=== PATIENT | female | born 1995 | race Caucasian/White ===

== ENCOUNTER 2019-04-12 20:01 | Inpatient (IN) ==
[2019-04-12] MEDS ORDERED: DIPHTHERIA/TETANUS/PERTUSSIS 0.5 ML SYR/VIAL IM ONE (21:51)
[2019-04-12 22:08] LABS: Hemoglobin 15.9 g/dL (12.0-16.0); Immature Granulocytes # (auto) 0.01 K/uL (0.00-0.02); Immature Granulocytes % (auto) 0.1 %; Lymphocytes # (auto) 1.55 K/uL (1.2-3.4); Lymphocytes % (auto) 21.7 %; Mean Corpuscular Hemoglobin 29.4 pg (25-34); Mean Corpuscular Hgb Conc 31.8 g/dL (32-36); Mean Corpuscular Volume 92.6 fL (80-100); Mean Platelet Volume 11.6 fL (7.4-10.4); Monocytes # (auto) 0.54 K/uL (0.11-0.59); Monocytes % (auto) 7.6 %; Neutrophils # (auto) 5.03 K/uL (1.4-6.5); Neutrophils % (auto) 70.6 %; Platelet Count 244 K/uL (130-400); RDW Coefficient of Variation 14.2 % (11.5-14.5); RDW Standard Deviation 47.8 fL (36.4-46.3); White Blood Count 7.13 K/uL (4.8-10.8)
[2019-04-12 22:23] LABS: Appearance Urine Cloudy (Clear); Bacteria Urine Automated 1+ (Negative); Bilirubin Urine Negative (Negative); Blood Urine Negative (Negative); Color Urine Dark Yellow; Epithelial Cell Urine Auto >30 /lpf (0-5); Glucose Urine UA Negative (Negative); Ketones Urine Trace (Negative); Leukocyte Esterase Urine 1+ (Negative); Nitrite Urine Negative (Negative); Protein Urine Negative (Negative); Urobilinogen Urine Negative (Negative)
[2019-04-12 22:28] LABS: Acetaminophen < 2 ug/ml (10-30); Salicylate < 1.7 mg/dl (2.8-20)
[2019-04-12 22:29] LABS: BUN Creatinine Ratio 14.4 (10-20); Calcium 9.5 mg/dl (8.5-10.1); Creatinine Clr Calc Pharmacy 137.7 ml/min; Est GFR (African American) 90.1; Est GFR (Non-African American) 77.7; Potassium 3.9 mmol/L (3.5-5.1)
--- NOTE | 2019-04-12 22:38 | Emergency Department Note ---
Entered by Angelia Ramirez acting as a scribe for History of Present Illness General Chief complaint: Mental Health Evaluation Stated complaint: MENTAL HEALTH EVAL Time Seen by Provider: 04/12/19 20:32 Source: patient History of Present Illness Provider complaint: Worsening Auditory Hallucinations Onset (ago): day(s) 1 Location: upper extremity Relieved By: + none Exacerbated By: + other (Stress) Associated symptoms: + denies other symptoms (Homicidal Ideation) and + other (Suicidal Ideation and AVH) The patient is a 24 year old female who presents to the Emergency Room with complaints of worsening auditory hallucinations. The patient additionally has cuts on her left upper extremity that is exacerbated by stress but not relieved by anything specific. The patient reports experiencing SI and AVH but denies any HI. The patient states she hears voices that tell her to hurt herself and sometimes to kill herself. The patient notes that she is stressed out about her poor relationship with her mother. Additionally, the patient mentioned that she has not been able to keep her anger under control but has not been institutionalized for almost 2-3 years. Home Medications Home Medications Medication Instructions Recorded Confirmed Type C1 esterase inhibitor 3,000 unit 9,000 units SUBCUT 2XWK ea 01/16/19 04/13/19 History subcutaneous solution C1 esterase inhibitor 500 unit (10 IV UD ea 01/16/19 01/16/19 History mL) intravenous kit aripiprazole 2 mg PO DAILY 04/12/19 04/12/19 History buspirone 5 mg PO BID 04/12/19 04/12/19 History clozapine 100 mg PO BID 04/12/19 04/12/19 History cyanocobalamin (vitamin B-12) 1,000 mcg PO DAILY 04/12/19 04/12/19 History icatibant 30 mg SUBCUT UD 04/12/19 04/13/19 History levothyroxine 75 mcg PO DAILY 04/12/19 04/12/19 History olopatadine 1 drp OPHTHALMIC (EYE) DAILY PRN 04/12/19 04/12/19 History sertraline 50 mg PO DAILY 04/12/19 04/12/19 History Allergies Allergy/AdvReac Type Severity Reaction Status Date / Time cranberry Allergy Unknown Verified 04/12/19 20:58 grapefruit Allergy Unknown Verified 04/12/19 20:57 Past Med/Surg History Medical History Intellectual disability (Chronic) Schizoaffective disorder, bipolar type (Chronic) Posttraumatic stress disorder (Chronic) Multiple nevi (Chronic) Morbid obesity (Chronic) Metabolic syndrome (Chronic) Hypothyroidism (Chronic) Hypersomnolence (Chronic) Hereditary angioedema (Chronic) Generalized anxiety disorder (Chronic) Surgical History History of dental surgery Status post hysteroscopic ablation of endometrium S/P tubal ligation S/P tonsillectomy Social History Preferred Language: [place] Gate Clerk Required: No Beliefs That Will Affect Care: None marital status: Single Current Living Situation: Other Current Living Situation Comment: Life Sharing partner Feels Safe at Home: Yes Smoking Status: Former smoker Review of Systems See HPI for pertinent positives & negatives. and A total of 10 systems reviewed and were otherwise negative Physical Exam Vital Signs Vital Signs - 24 hr 04/12/19 22:00 Pulse Rate [Finger] 97 H Pulse Rhythm [Finger] Regular Pulse Strength [Finger] Normal Respiratory Rate 18 Respiratory Effort / Characteristics Non-Labored Spontaneous Respiratory Depth Normal Respiratory Pattern Regular Blood Pressure [Right Arm] 147/95 H Blood Pressure Mean [Right Arm] 112 Blood Pressure Position [Right Arm] Sitting Pulse Oximetry 98 Oxygen Delivery Method Room Air GENERAL: alert, well appearing, well nourished, no distress, non-toxic. Flat affect. EYE EXAM: normal conjunctiva, PERRL and EOM's grossly intact OROPHARYNX: no exudate, no erythema, lips, buccal mucosa, and tongue normal and mucous membranes are moist NECK: supple, no nuchal rigidity, no adenopathy, non-tender LUNGS: Clear to auscultation. Normal chest wall mechanics HEART: no murmurs, S1 normal and S2 normal ABDOMEN: abdomen soft, non-tender, normo-active bowel sounds, no masses, no rebound or guarding. BACK: Back is symmetrical on inspection and there is no deformity, no midline tenderness, no CVA tenderness. SKIN: no rashes and no bruising UPPER EXTREMITIES: Left ventral forearm with multiple superficial lacerations. Normal distal pulses bilaterally. LOWER EXTREMITIES: No pitting edema. NEURO EXAM: Normal sensorium, cranial nerves II-XII grossly intact, normal speech, no gross weakness of arms, no gross weakness of legs. Course 2037: Past medical records reviewed. The patient was evaluated in room A05. A complete history and physical exam was performed. 2219: Patient seen and evaluated by Shalini, psychiatric case repairer. Patient will be referred upstairs to 3 S. [id number]: [id number] signed by myself. Patient admitted to [facility]. Administered Medications Aripiprazole (Abilify) 1 ea PO DAILY LUIS Stop: 05/13/19 08:59 Last Admin: 04/13/19 08:43 Dose: 1 ea Documented by: [id number] Buspirone HCl (Buspar) 5 mg PO BID LUIS Stop: 05/13/19 08:59 Last Admin: 04/13/19 21:14 Dose: 5 mg Documented by: [id number] Admin: 04/13/19 08:43 Dose: 5 mg Documented by: [id number] Buspirone HCl (Buspar) 7.5 mg PO BID PRN PRN Reason: Anxiety Stop: 05/13/19 20:59 Last Admin: 04/13/19 17:10 Dose: 7.5 mg Documented by: [id number] Clozapine (Clozapine) 100 mg PO BID LUIS Stop: 05/13/19 08:59 Last Admin: 04/13/19 21:15 Dose: 100 mg Documented by: [id number] Admin: 04/13/19 08:43 Dose: 100 mg Documented by: [id number] Cyanocobalamin (Vitamin B-12) 100 mcg PO QAM LUIS Stop: 05/13/19 08:59 Last Admin: 04/13/19 08:44 Dose: 100 mcg Documented by: [id number] Hydroxyzine HCl (Vistaril) 50 mg PO HSZ PRN PRN Reason: Insomnia Stop: 05/13/19 00:57 Last Admin: 04/13/19 01:02 Dose: 50 mg Documented by: [id number] Hydroxyzine HCl (Vistaril) 25 mg PO Q4H PRN PRN Reason: Anxiety Stop: 05/13/19 00:57 Last Admin: 04/13/19 17:10 Dose: 25 mg Documented by: [id number] Admin: 04/13/19 10:01 Dose: 25 mg Documented by: [id number] Levothyroxine Sodium (Synthroid) 75 mcg PO DAILYBB LUIS Stop: 05/13/19 07:59 Last Admin: 04/13/19 08:43 Dose: 75 mcg Documented by: [id number] Non-Formulary Medication (Non-Formulary Patient's Own Med) 1 ea OP DAILY PRN PRN Reason: ALLERGY EYES Stop: 05/13/19 01:59 Last Admin: 04/13/19 11:28 Dose: 1 dose Documented by: [id number] Discontinued Medications Diphtheria/Pertussis/Tetanus Vacc (Adacel) 0.5 ml IM .ONCE ONE Stop: 04/12/19 21:52 Last Admin: 04/12/19 22:05 Dose: 0.5 ml Documented by: [id number] Sertraline HCl (Zoloft) 50 mg PO DAILY LUIS Stop: 05/13/19 08:59 Last Admin: 04/13/19 08:43 Dose: 50 mg Documented by: [id number] Medical Decision Making Differential Diagnosis Differential diagnosis: Etiologies such as psychiatric disorder, infection, hypoglycemia, electrolyte abnormalities, cardiac sources, intracerebral event, toxicological process, neurologic disorder, as well as others were entertained. Medical Records Attestation: I reviewed the patient's medical records. Home Medications Current Medication List: was personally reviewed by me Laboratory Data Attestation: I reviewed the patient's lab results. Result diagrams: 04/12/19 21:51 04/12/19 21:51 Lab Results 04/12/19 04/12/19 04/12/19 Range/Units 21:51 21:51 21:51 WBC 7.13 (4.8-10.8) K/uL RBC 5.40 (4.2-5.4) M/uL Hgb 15.9 (12.0-16.0) g/dL Hct 50.0 H (37-47) % MCV 92.6 (80-100) fL MCH 29.4 (25-34) pg MCHC 31.8 L (32-36) g/dL RDW Std Deviation 47.8 H (36.4-46.3) fL RDW Coeff of Drea 14.2 (11.5-14.5) % Plt Count 244 (130-400) K/uL MPV 11.6 H (7.4-10.4) fL Immature Gran % (Auto) 0.1 % Neut % (Auto) 70.6 % Lymph % (Auto) 21.7 % Lyon % (Auto) 7.6 % Eos % (Auto) 0.0 % Baso % (Auto) 0.0 % Immature Gran # (Auto) 0.01 (0.00-0.02) K/uL Neut # (Auto) 5.03 (1.4-6.5) K/uL Lymph # (Auto) 1.55 (1.2-3.4) K/uL Lyon # (Auto) 0.54 (0.11-0.59) K/uL Eos # (Auto) 0.00 (0-0.5) K/uL Baso # (Auto) 0.00 (0-0.2) K/uL Sodium 140 (136-145) mmol/L Potassium 3.9 (3.5-5.1) mmol/L Chloride 105 (98-107) mmol/L Carbon Dioxide 28 (21-32) mmol/L Anion Gap 7.0 (3-11) BUN 14 (7-18) mg/dl Creatinine 1.00 (0.6-1.2) mg/dl Est Cr Clr Drug Dosing 137.7 ml/min Est GFR ( Amer) 90.1 Est GFR (Non-Af Amer) 77.7 BUN/Creatinine Ratio 14.4 (10-20) Glucose 107 H (70-99) mg/dl Calcium 9.5 (8.5-10.1) mg/dl Total Bilirubin 0.3 (0.2-1) mg/dl AST 12 L (15-37) U/L ALT 27 (12-78) U/L Alkaline Phosphatase 88 (45-117) U/L Total Protein 7.6 (6.4-8.2) gm/dl Albumin 4.0 (3.4-5.0) gm/dl Globulin 3.6 (2.5-4.0) gm/dl Albumin/Globulin Ratio 1.1 (0.9-2) TSH 2.980 (0.300-4.500) uIu/ml HCG, Qual (Negative) Urine Color Urine Appearance (Clear) Urine pH (4.5-7.5) Ur Specific [place] (1.000-1.030) Urine Protein (Negative) Urine Glucose (UA) (Negative) Urine Ketones (Negative) Urine Blood (Negative) Urine Nitrite (Negative) Urine Bilirubin (Negative) Urine Urobilinogen (Negative) Ur Leukocyte Esterase (Negative) Urine WBC (Auto) (0-5) /hpf Urine RBC (Auto) (0-4) /hpf U Hyaline Cast (Auto) (0-5) /lpf U Epithel Cells (Auto) (0-5) /lpf Urine Bacteria (Auto) (Negative) Salicylates < 1.7 L (2.8-20) mg/dl Urine Opiates Screen (Neg) Ur Methadone, Qual (Neg) Acetaminophen < 2 L (10-30) ug/ml Urine Barbiturates (Neg) Ur Phencyclidine (PCP) (Neg) U Amphetamin/Meth Scrn (Neg) MDMA (Ecstasy) Screen (Neg) U Benzodiazepines Scrn (Neg) Ur Cocaine Metabolite (Neg) U Marijuana (THC) Screen (Neg) Ethyl Alcohol mg/dL (0-3) mg/dl 04/12/19 04/12/19 04/12/19 Range/Units 21:51 21:56 22:07 WBC (4.8-10.8) K/uL RBC (4.2-5.4) M/uL Hgb (12.0-16.0) g/dL Hct (37-47) % MCV (80-100) fL MCH (25-34) pg MCHC (32-36) g/dL RDW Std Deviation (36.4-46.3) fL RDW Coeff of Drea (11.5-14.5) % Plt Count (130-400) K/uL MPV (7.4-10.4) fL Immature Gran % (Auto) % Neut % (Auto) % Lymph % (Auto) % Lyon % (Auto) % Eos % (Auto) % Baso % (Auto) % Immature Gran # (Auto) (0.00-0.02) K/uL Neut # (Auto) (1.4-6.5) K/uL Lymph # (Auto) (1.2-3.4) K/uL Lyon # (Auto) (0.11-0.59) K/uL Eos # (Auto) (0-0.5) K/uL Baso # (Auto) (0-0.2) K/uL Sodium (136-145) mmol/L Potassium (3.5-5.1) mmol/L Chloride (98-107) mmol/L Carbon Dioxide (21-32) mmol/L Anion Gap (3-11) BUN (7-18) mg/dl Creatinine (0.6-1.2) mg/dl Est Cr Clr Drug Dosing ml/min Est GFR ( Amer) Est GFR (Non-Af Amer) BUN/Creatinine Ratio (10-20) Glucose (70-99) mg/dl Calcium (8.5-10.1) mg/dl Total Bilirubin (0.2-1) mg/dl AST (15-37) U/L ALT (12-78) U/L Alkaline Phosphatase (45-117) U/L Total Protein (6.4-8.2) gm/dl Albumin (3.4-5.0) gm/dl Globulin (2.5-4.0) gm/dl Albumin/Globulin Ratio (0.9-2) TSH (0.300-4.500) uIu/ml HCG, Qual Negative (Negative) Urine Color Urine Appearance (Clear) Urine pH (4.5-7.5) Ur Specific [place] (1.000-1.030) Urine Protein (Negative) Urine Glucose (UA) (Negative) Urine Ketones (Negative) Urine Blood (Negative) Urine Nitrite (Negative) Urine Bilirubin (Negative) Urine Urobilinogen (Negative) Ur Leukocyte Esterase (Negative) Urine WBC (Auto) (0-5) /hpf Urine RBC (Auto) (0-4) /hpf U Hyaline Cast (Auto) (0-5) /lpf U Epithel Cells (Auto) (0-5) /lpf Urine Bacteria (Auto) (Negative) Salicylates (2.8-20) mg/dl Urine Opiates Screen Neg (Neg) Ur Methadone, Qual Neg (Neg) Acetaminophen (10-30) ug/ml Urine Barbiturates Neg (Neg) Ur Phencyclidine (PCP) Neg (Neg) U Amphetamin/Meth Scrn Neg (Neg) MDMA (Ecstasy) Screen Neg (Neg) U Benzodiazepines Scrn Neg (Neg) Ur Cocaine Metabolite Neg (Neg) U Marijuana (THC) Screen Neg (Neg) Ethyl Alcohol mg/dL < 3.0 (0-3) mg/dl 04/12/19 Range/Units 22:07 WBC (4.8-10.8) K/uL RBC (4.2-5.4) M/uL Hgb (12.0-16.0) g/dL Hct (37-47) % MCV (80-100) fL MCH (25-34) pg MCHC (32-36) g/dL RDW Std Deviation (36.4-46.3) fL RDW Coeff of Drea (11.5-14.5) % Plt Count (130-400) K/uL MPV (7.4-10.4) fL Immature Gran % (Auto) % Neut % (Auto) % Lymph % (Auto) % Lyon % (Auto) % Eos % (Auto) % Baso % (Auto) % Immature Gran # (Auto) (0.00-0.02) K/uL Neut # (Auto) (1.4-6.5) K/uL Lymph # (Auto) (1.2-3.4) K/uL Lyon # (Auto) (0.11-0.59) K/uL Eos # (Auto) (0-0.5) K/uL Baso # (Auto) (0-0.2) K/uL Sodium (136-145) mmol/L Potassium (3.5-5.1) mmol/L Chloride (98-107) mmol/L Carbon Dioxide (21-32) mmol/L Anion Gap (3-11) BUN (7-18) mg/dl Creatinine (0.6-1.2) mg/dl Est Cr Clr Drug Dosing ml/min Est GFR ( Amer) Est GFR (Non-Af Amer) BUN/Creatinine Ratio (10-20) Glucose (70-99) mg/dl Calcium (8.5-10.1) mg/dl Total Bilirubin (0.2-1) mg/dl AST (15-37) U/L ALT (12-78) U/L Alkaline Phosphatase (45-117) U/L Total Protein (6.4-8.2) gm/dl Albumin (3.4-5.0) gm/dl Globulin (2.5-4.0) gm/dl Albumin/Globulin Ratio (0.9-2) TSH (0.300-4.500) uIu/ml HCG, Qual (Negative) Urine Color Dark Yellow Urine Appearance Cloudy A (Clear) Urine pH 7.0 (4.5-7.5) Ur Specific [place] 1.030 (1.000-1.030) Urine Protein Negative (Negative) Urine Glucose (UA) Negative (Negative) Urine Ketones Trace H (Negative) Urine Blood Negative (Negative) Urine Nitrite Negative (Negative) Urine Bilirubin Negative (Negative) Urine Urobilinogen Negative (Negative) Ur Leukocyte Esterase 1+ H (Negative) Urine WBC (Auto) 10-30 H (0-5) /hpf Urine RBC (Auto) 5-10 H (0-4) /hpf U Hyaline Cast (Auto) 5-10 H (0-5) /lpf U Epithel Cells (Auto) >30 H (0-5) /lpf Urine Bacteria (Auto) 1+ H (Negative) Salicylates (2.8-20) mg/dl Urine Opiates Screen (Neg) Ur Methadone, Qual (Neg) Acetaminophen (10-30) ug/ml Urine Barbiturates (Neg) Ur Phencyclidine (PCP) (Neg) U Amphetamin/Meth Scrn (Neg) MDMA (Ecstasy) Screen (Neg) U Benzodiazepines Scrn (Neg) Ur Cocaine Metabolite (Neg) U Marijuana (THC) Screen (Neg) Ethyl Alcohol mg/dL (0-3) mg/dl Blood Pressure Blood Pressure Findings: Elevated blood pressure Blood Pressure Disposition: Referred to patients primary care provider [facility] Narrative Patient well-appearing here despite complaints. Patient continues to say she does not feel safe at home. Patient does have a prior history of cutting, and has cut again this evening. I do not feel any of them require stitches. Patient's tetanus was updated as a precaution. Patient was in agreement with inpatient admission. Patient's other labs reassuring, UA suboptimal, however no overt findings of UTI and no symptoms. Patient hemodynamically stable while here. Patient does admit to SI, although denies any plan. Patient does have a long-standing history of auditory hallucinations, some of which do tell her to hurt herself, she denies they have ever told her to hurt anyone else. Impression & Plan Depression, Schizoaffective disorder, bipolar type, Intentional self-harm, Suicidal ideation, Auditory hallucination Discharge Plan Visit Data *Final* Discharge Date/Time: 04/13/19 00:25 Chief Complaint: Mental Health Evaluation Stated Complaint: MENTAL HEALTH EVAL ED Provider: Purvi Lawson Discharge Problem: Depression, Schizoaffective disorder, bipolar type, Intentional self-harm, Suic idal ideation, Auditory hallucination Patient Disposition: Transfer Inpatient Rehab Fac Condition: Good Discharge Instructions Interventions: ED Discharge Assessment Last Done: 04/13/19 00:25 The scribe's documentation has been prepared under my direction and personally reviewed by me in its entirety. I confirm that the note above accurately reflects all work, treatment, procedures, and medical decision making performed by me.
[2019-04-12 22:39] LABS: Albumin Globulin Ratio 1.1 (0.9-2); Bilirubin,Total 0.3 mg/dl (0.2-1); Globulin 3.6 gm/dl (2.5-4.0); Thyroid Stimulating Hormone 2.98 uIu/ml (0.300-4.500); Total Protein 7.6 gm/dl (6.4-8.2)
[2019-04-12 22:43] LABS: Amphetamines+Metham, Urine Neg (Neg); Barbiturates, Urine Neg (Neg); Benzodiazepine, Urine Neg (Neg); Cocaine, Urine Neg (Neg); MDMA (Ecstacy), Urine Neg (Neg); Methadone, Urine Neg (Neg); Opiate, Urine Neg (Neg); Phencyclidine, Urine Neg (Neg)
[2019-04-12 23:47] LABS: Pregnancy Test, Serum Negative (Negative)
[2019-04-13 00:26] VITALS: O2SAT 94
[2019-04-13] MEDS ORDERED: SODIUM CHLORIDE 0.65% NA SOLN 45 ML (OCEAN) PRN (00:58)
[2019-04-13] MEDS ORDERED: BISMUTH SUBSALICYLATE PER ML OMNICELL CHARGE PO PRN (00:58)
[2019-04-13] MEDS ORDERED: MAGNESIUM HYDROXIDE SUSP 30 ML UDC PO PRN (00:58)
[2019-04-13] MEDS ORDERED: ALUMINUM/MAGNESIUM SUSP 30 ML UDC PO PRN (00:58)
[2019-04-13] MEDS ORDERED: FIRAZYR SQ PRN (02:00)
[2019-04-13] MEDS ORDERED: NON-FORMULARY PATIENT'S OWN MED OP PRN (02:00)
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
[2019-04-13] MEDS: ARIPiprazole PO SCH (08:43)
[2019-04-13] MEDS: cloZAPine 100 MG TAB PO SCH ×2 (08:43→21:15)
[2019-04-13] MEDS: LEVOTHYROXINE SODIUM 75 MCG TABLET PO SCH (08:43)
[2019-04-13] MEDS: CYANOCOBALAMIN (VITAMIN B-12) 100 MCG TABLET PO SCH (08:44)
[2019-04-13] MEDS ORDERED: ARIPIprazole 1 MG/ML ORAL SOLN 150 ML BTL PO SCH (09:00)
[2019-04-13] MEDS ORDERED: BUSPIRONE HCL 7.5 MG TAB PO SCH (09:00)
[2019-04-13] MEDS ORDERED: SERTRALINE HCL 50 MG TABLET PO SCH (09:00)
[2019-04-13] MEDS: BUSPIRONE HCL 7.5 MG TAB PO PRN (17:10)
[2019-04-14 07:45] LABS: Estimated Average Glucose 114 mg/dl; Hemoglobin A1C 5.6 % (4.5-5.6)
[2019-04-14 08:12] LABS: Chol HDL Ratio 4; Cholesterol 187 mg/dl (0-200); HDL Cholesterol 50 mg/dl; LDL Cholesterol Calculated 112 mg/dl; Triglycerides 124 mg/dl (0-150); VLDL Cholesterol 25 mg/dl
[2019-04-14] MEDS: ARIPiprazole PO SCH (08:59)
[2019-04-14] MEDS: LEVOTHYROXINE SODIUM 75 MCG TABLET PO SCH (08:59)
[2019-04-14] MEDS: cloZAPine 100 MG TAB PO SCH ×2 (09:00→21:03)
[2019-04-14] MEDS: CYANOCOBALAMIN (VITAMIN B-12) 100 MCG TABLET PO SCH (09:01)
[2019-04-14] MEDS: SERTRALINE HCL 50 MG TABLET PO SCH (09:01)
[2019-04-14] MEDS: ACETAMINOPHEN 325 MG TAB PO PRN ×2 (10:04→19:37)
--- NOTE | 2019-04-14 13:31 | Psychiatric Progress Note ---
Date of Service April 14, 2019 Impression / Recommendations Impression 24-year-old single female who lives with a staff member and supportive living in [place], has a history of schizoaffective disorder bipolar type and intellectual disability, and is hospitalized with self-injurious behavior by cutting her left forearm in the context of anger at having to move away from her parents home due to substance abuse issues in the family. She reports exacerbation of depression and anxiety over the past several months, and although her chart indicates a history of schizoaffective disorder, she does not endorse any true psychotic symptoms. She describes her "hallucinations" as her own thoughts, and states they turn to self injury as a way to cope when she is upset or angry. She appears to have limited distress tolerance and healthy coping skills, and is willing to work on these here. Home user support analyst supervisor from [facility] was involved in a meeting to discuss discharge and safety planning. She would also like to be set up with an in person psychiatrist, as she had a session via tele-psychiatry and did not like it. Inpatient treatment is medically necessary due to the severity of her symptoms, ongoing thoughts of self injury and suicide, and risk for self- harm if discharged at this time. (1) Intentional self-harm: 04/13 -evaluated superficial lacerations to left forearm; multiple scratches that appear to be healing, no swelling, erythema, active bleeding. Keep area clean and dry, use of bacitracin as needed. -Patient reports ongoing urges to engage in self injury, and agrees to go to staff if she feels unable to keep herself safe. Explore and identify healthy coping strategies; work on discharge safety plan. 04/14 - Pt verbalized desire to harm herself to staff last evening, presenting them with a pen she had intended to use - Pt admits to ongoing thoughts to harm herself, but has refrained from acting - stating "I gave up my weapon" (2) Schizoaffective disorder, bipolar type: 04/13 -obtain outpatient records to clarify diagnosis and past treatments. We will also need to clarify if she is being cross titrated from 1 antipsychotic to another, or if aripiprazole is being used for augmentation with clozapine. -Continue home medications including buspirone 5 mg twice daily, clozapine 100 mg twice daily, and aripiprazole 2 mg daily. Increase sertraline to 75 mg daily to target mood and anxiety symptoms. -CBC with differential reviewed for monitoring on clozapine; ANC 5.03. -Order fasting lipid profile and hemoglobin A1c for monitoring on an atypical antipsychotic for tomorrow morning.` -Encourage patient to attend to participate in groups and therapy. -Family meeting. Coordinate care with her outpatient clinicians. 04/14 - Continue as above; buspirone titrated to 10mg BID scheduled, with continued availability of 7.5mg prn dosing - Family meeting with support from [facility] was held today - Continue to encourage participation in group and recreational therapy (3) Generalized anxiety disorder: Continue home dose of buspirone 5 mg twice daily and increase sertraline as above. Offer hydroxyzine as needed for severe anxiety. Work on behavioral techniques for managing anxiety and de-escalating. 04/14 - buspirone titrated to 10mg BID, to begin this evening - can continue titration as needed/tolerated - Continue to have prn dosing of buspirone 7.5mg prn anxiety (4) Intellectual disability: Involved director of casework services from [employer]. (5) Posttraumatic stress disorder: Patient denies active symptoms currently. (6) Morbid obesity: Encouraged nutritious diet and physical activity, to assist with overall health, mood, anxiety, and weight loss. (7) Hypothyroidism: Continue home dose of levothyroxine. TSH within normal limits on admissio n. Risk Factors Assessment Male: No : Yes Do You Have Access To A Gun?: No Health Problems: Yes Mental Health Diagnoses: Yes Substance Use Disorders: No Previous Attempt: Yes Previous Psychiatric Hospitalization: Yes Hopelessness: No Smoker: No Protective Factors Assessment : No Responsible for Young Children: No Employed: No Stable Relationships: Yes Supportive Family: No Good Rapport with Provider: No Interval History Identifying Information TYLER HOLLOWAY is a 24-year-old F who currently lives in [place] with a female "director of community life," has a history of schizoaffective disorder, bipolar type and ID, and was admitted on 04/13/19 00:05 on a 201 voluntary commitment for auditory hallucinations telling her to harm herself and self injury by cutting. Chief Complaint "Not good. I had a rough meeting." Review of Systems Notes Constitutional: denied Cardiovascular: denied Respiratory: denied Gastrointestinal: denied Neurological: denied Psychiatric: denies symptoms other than stated above Total of at least 10 systems reviewed, pertinent positives as above and in HPI. Sleep Information Total Hours of Sleep: 6.5 Sleep Comments: pt on q-15 minute checks Meal Information Percent Meal Consumed - Breakfast: 0 Percent Meal Consumed - Lunch: 75 Percent Meal Consumed - Dinner: 75 Nutrition Comment: pt. does not typically eat breakfast Subjective Subjective Patient was seen & assessed and interval progress reviewed with nursing and social work. Staff reports the patient has a meeting with her support strength and conditioning coach from [facility] this afternoon. Patient did not verbalize to staff urges to harm herself with a pen last evening. She is able to communicate these urges and re linquished the pen. Patient was seen today to assess progress since admission. She states that she is "not good." Patient reports having a "rough meeting" with her support strength and conditioning coach. Patient feels the meeting was rough due to "the things we talked about", most specifically discussing patient's biological family. Patient states that the topic of her family has been difficult, as she does not feel that they are a support to her. Patient states this has been difficult for her, as many patients had verbalized a tremendous amount of support from their family members and patient feels left out. When asked what the patient was able to learn from the meeting, she states "that we need help communicating." Patient states that she does have difficulty opening up to her support, which due to the fact that they have only known each other for a limited time. The patient states "I have only going on the lady for 4 months!" Patient does admit that her support strength and conditioning coach shared that "I scared the crap out of her", and for this the patient verbalizes remorse. The patient reports understanding that self- injurious behavior is not a positive reaction to stress; however, states she was not sure how to handle the situation no one was available to reach out to. The patient does admit to ongoing feelings of depression and anxiety, stating "this is not me, I am usually happy and bubbly." Patient continues to deny truly suicidal ideation, stating she has no intent to end her life, but admits to ongoing urges to harm herself. Patient states she has not been tempted to act on these urges since "I gave up my weapon." The patient admits that she gave staff the pen that she had considered using to harm herself last evening. Patient is agreeable to medication adjustments to target ongoing anxiety. Patient denies other needs or concerns at this time. Physical Exam Psychiatric Orientation: alert, oriented x 3 and cooperative (but timid) Apperance: appropriately dressed (Dressed casually, but wearing a nightgown for duration of the day), appropriately groomed and appeared stated age Eye Contact: good eye contact Motor Behavior: steady gait and station and no abnormal motor movements Speech: + abnormal rate/rhythm/volume of speech (soft volume, whispering at times - nonspontaneous) Affect: + flat affect Mood: + anxious mood ("I need help, anything to help my anxiety") Thought Process: goal directed thought process and + concrete thought process Thought Content: reality based without delusions Suicidal Thoughts: denies suicidal thoughts (but admits to continued thoughts to injure herself, no intent to end life) and denies suicidal intent Homicidal Thoughts: denies homicidal thoughts Hallucinations: + auditory hallucinations (voices telling her to harm herself, most recently by using a pen) Cognition: attention grossly intact and language grossly intact Estimated Intelligence: + below average estimated intelligence Insight: + limited insight Judgement: + fair judgement Vital Signs (Past 24 Hours) Last Vital Signs Temp 36.4 C L 04/14/19 06:38 Pulse 103 H 04/14/19 06:39 Resp 20 04/14/19 06:38 BP 130/73 04/14/19 06:39 Pulse Ox 94 04/13/19 00:25 Results & Data Laboratory Results Laboratory Results - last 24 hr 04/14/19 04/14/19 07:16 07:16 Estimat Average Glucose 114 Hemoglobin A1c 5.6 Triglycerides 124 Cholesterol 187 LDL Cholesterol, Calc 112 VLDL Cholesterol, Calc 25 HDL Cholesterol 50 Cholesterol/HDL Ratio 4 Current Inpatient Medications Current Inpatient Medications: Current Inpatient Medications Acetaminophen (Tylenol) 650 mg PO Q4H PRN PRN Reason: Headache or Minor Fever Stop: 05/13/19 00:57 Last Admin: 04/14/19 10:04 Dose: 650 mg Documented by: Al Hydrox/Mg Hydrox/Simethicone (Maalox) 30 ml PO Q4H PRN PRN Reason: GI Upset Stop: 05/13/19 00:57 Aripiprazole (Abilify) 1 ea PO DAILY LUIS Stop: 05/13/19 08:59 Last Admin: 04/14/19 08:59 Dose: 1 ea Documented by: Bismuth Subsalicylate (Kaopectate) 15 ml PO PRN PRN PRN Reason: Loose Stool Stop: 05/13/19 00:57 Buspirone HCl (Buspar) 5 mg PO BID LUIS Stop: 05/13/19 08:59 Last Admin: 04/14/19 09:00 Dose: 5 mg Documented by: Buspirone HCl (Buspar) 7.5 mg PO BID PRN PRN Reason: Anxiety Stop: 05/13/19 20:59 Last Admin: 04/13/19 17:10 Dose: 7.5 mg Documented by: Clozapine (Clozapine) 100 mg PO BID [facility] Stop: 05/13/19 08:59 Last Admin: 04/14/19 09:00 Dose: 100 mg Documented by: Cyanocobalamin (Vitamin B-12) 100 mcg PO QAM LUIS Stop: 05/13/19 08:59 Last Admin: 04/14/19 09:01 Dose: 100 mcg Documented by: Hydroxyzine HCl (Vistaril) 50 mg PO HSZ PRN PRN Reason: Insomnia Stop: 05/13/19 00:57 Last Admin: 04/13/19 01:02 Dose: 50 mg Documented by: Hydroxyzine HCl (Vistaril) 25 mg PO Q4H PRN PRN Reason: Anxiety Stop: 05/13/19 00:57 Last Admin: 04/14/19 09:03 Dose: 25 mg Documented by: Levothyroxine Sodium (Synthroid) 75 mcg PO DAILYBB [facility] Stop: 05/13/19 07:59 Last Admin: 04/14/19 08:59 Dose: 75 mcg Documented by: Magnesium Hydroxide (Milk Of Magnesia) 30 ml PO DAILY PRN PRN Reason: Constipation Stop: 05/13/19 00:57 Firazyr~Non- Formulary Patient's Own Med 1 ea SQ UD PRN PRN Reason: ANGIOEDEMA Stop: 05/13/19 01:59 Non-Formulary Medication (Non-Formulary Patient's Own Med) 1 ea OP DAILY PRN PRN Reason: ALLERGY EYES Stop: 05/13/19 01:59 Last Admin: 04/13/19 11:28 Dose: 1 dose Documented by: Sertraline HCl (Zoloft) 75 mg PO DAILY [facility]IS Stop: 05/14/19 08:59 Last Admin: 04/14/19 09:01 Dose: 75 mg Documented by: Sodium Chloride ([place] Nasal) 1 - 2 sprays NA PRN PRN PRN Reason: Nasal Dryness/Congestion Stop: 05/13/19 00:57 Mental Health & Subst Abuse Tx Therapist Name of Therapist: none Marine Steam Fitter Name of Marine Steam Fitter: ROGER Cramer Post Discharge Appointments Other #1: Name of Aftercare Appointment: [facility]
[2019-04-14] MEDS: BUSPIRONE HCL 7.5 MG TAB PO PRN (16:59)
[2019-04-15] MEDS: ARIPiprazole PO SCH (08:18)
[2019-04-15] MEDS: LEVOTHYROXINE SODIUM 75 MCG TABLET PO SCH (08:18)
[2019-04-15] MEDS: SERTRALINE HCL 50 MG TABLET PO SCH (08:19)
[2019-04-15] MEDS: cloZAPine 100 MG TAB PO SCH ×2 (08:19→21:23)
[2019-04-15] MEDS: CYANOCOBALAMIN (VITAMIN B-12) 100 MCG TABLET PO SCH (08:19)
--- NOTE | 2019-04-15 10:25 | Psychiatric Progress Note ---
Date of Service April 15, 2019 Impression / Recommendations Impression 24-year-old single female who lives with a staff member and supportive living in [place], has a history of schizoaffective disorder bipolar type and intellectual disability, and is hospitalized with self-injurious behavior by cutting her left forearm in the context of anger at having to move away from her parents home due to substance abuse issues in the family. She reports exacerbation of depression and anxiety over the past several months, and although her chart indicates a history of schizoaffective disorder, she does not endorse any true psychotic symptoms. She describes her "hallucinations" as her own thoughts, and states they turn to self injury as a way to cope when she is upset or angry. She appears to have limited distress tolerance and healthy coping skills, and is willing to work on these here. Home client application support engineer from [facility] was involved in a meeting to discuss discharge and safety planning. She would also like to be set up with an in person psychiatrist, as she had a session via tele-psychiatry and did not like it. While these arrangements are recommended, it is not likely that her care can be transitioned during this acute hospitalization without disrupting other highly beneficial services patient receives currently. Inpatient treatment is medically necessary due to the severity of her symptoms, ongoing thoughts of self injury and suicide, and risk for self-harm if discharg ed at this time. (1) Intentional self-harm: 04/13 -evaluated superficial lacerations to left forearm; multiple scratches that appear to be healing, no swelling, erythema, active bleeding. Keep area clean and dry, use of bacitracin as needed. -Patient reports ongoing urges to engage in self injury, and agrees to go to staff if she feels unable to keep herself safe. Explore and identify healthy coping strategies; work on discharge safety plan. 04/14 - Pt verbalized desire to harm herself to staff last evening, presenting them with a pen she had intended to use - Pt admits to ongoing thoughts to harm herself, but has refrained from acting - stating "I gave up my weapon" 04/15 - Denies overt SI, admits to chronic thoughts to injure herself - actively developing healthy coping strategies with assistance from staff (2) Schizoaffective disorder, bipolar type: 04/13 -obtain outpatient records to clarify diagnosis and past treatments. We will also need to clarify if she is being cross titrated from 1 antipsychotic to another, or if aripiprazole is being used for augmentation with clozapine. -Continue home medications including buspirone 5 mg twice daily, clozapine 100 mg twice daily, and aripiprazole 2 mg daily. Increase sertraline to 75 mg daily to target mood and anxiety symptoms. -CBC with differential reviewed for monitoring on clozapine; ANC 5.03. -Order fasting lipid profile and hemoglobin A1c for monitoring on an atypical antipsychotic for tomorrow morning.` -Encourage patient to attend to participate in groups and therapy. -Family meeting. Coordinate care with her outpatient clinicians. 04/14 - Continue as above; buspirone titrated to 10mg BID scheduled, with continued availability of 7.5mg prn dosing - Family meeting with support from [facility] was held today - Continue to encourage participation in group and recreational therapy 04/15 - Continue current medication regimen - Coordinate discharge planning with patient home support through [facility] (3) Generalized anxiety disorder: Continue home dose of buspirone 5 mg twice daily and increase sertraline as above. Offer hydroxyzine as needed for severe anxiety. Work on behavioral techniques for managing anxiety and de-escalating. 04/14 - buspirone titrated to 10mg BID, to begin this evening - can continue titration as needed/tolerated - Continue to have prn dosing of buspirone 7.5mg prn anxiety (4) Intellectual disability: Involved protective services case worker from [employer]. (5) Posttraumatic stress disorder: Patient denies active symptoms currently. (6) Morbid obesity: Encouraged nutritious diet and physical activity, to assist with overall health, mood, anxiety, and weight loss. (7) Hypothyroidism: Continue home dose of levothyroxine. TSH within normal limits on admission. Risk Factors Assessment Male: No : Yes Do You Have Access To A Gun?: No Health Problems: Yes Mental Health Diagnoses: Yes Substance Use Disorders: No Previous Attempt: Yes Previous Psychiatric Hospitalization: Yes Hopelessness: No Smoker: No Protective Factors Assessment : No Responsible for Young Children: No Employed: No Stable Relationships: Yes Supportive Family: No Good Rapport with Provider: No Interval History Identifying Information TYLER HOLLOWAY is a 24-year-old F who currently lives in [place] with a female "wildlife ecologist," has a history of schizoaffective disorder, bipolar type and ID, and was admitted on 04/13/19 00:05 on a 201 voluntary commitment for auditory hallucinations telling her to harm herself and self injury by cutting. Chief Complaint "Anxious." Review of Systems Notes Constitutional: reports episodic dizziness, increased drowsiness today Cardiovascular: denied Respiratory: denied Gastrointestinal: denied Neurological: denied Psychiatric: denies symptoms other than stated above Total of at least 10 systems reviewed, pertinent positives as above and in HPI. Sleep Information Total Hours of Sleep: 7 Sleep Comments: pt on q-15 minute checks Meal Information Percent Meal Consumed - Breakfast: 0 Percent Meal Consumed - Lunch: 75 Percent Meal Consumed - Dinner: 100 Nutrition Comment: pt. does not typically eat breakfast Subjective Subjective Patient was seen & assessed and interval progress reviewed with treatment team. Staff reports the patient had a somewhat difficult meeting with her ID support dance coach, whom she lives with. The meeting was focused on expectations of behavior within the home. Patient continues to verbalize anxiety to staff, but reportedly appears comfortable and at ease on the unit. Patient was seen today to assess progress since admission. She states that she is "anxious" today. When asked about specific thoughts or physical symptoms that make her say this, the patient states "my heart races, sweaty, and my hand is shaking more than usual." Patient held out her hand to this provider, and no tremor was observed. Patient states that she is having increased thoughts to hurt herself today, stating "they are bad enough today that they are making me have thoughts that I do not want to be around anymore." When attempting to discuss the severity of these thoughts, the patient does describe them as "mild." She denies any specific plans or considerations to harm herself here on the unit. Patient does share with this provider that she continues to have thoughts to injure herself, but denies that these are suicidal in nature. Patient does report several coping strategies she has been utilizing on the unit to distract herself from these thoughts. One of the strategies, according to the patient, was to write on her arm. On the same arm that the patient injured prior to admission, this provider observes that she has written the words "be kind to myself" and drawn what appears to be a wound with stitches. When asked how this has benefited the patient, she states "I look out of it and it reminds me not to be stupid and hurt myself." Patient states that she has been experiencing some increased drowsiness during the day, and verbalizes episodes of dizziness. Patient was encouraged to continue to monitor the symptoms. We reviewed potential side effects with titration of buspirone, and patient agreed to update staff with any changes in her physical condition. We had discussed steps to improve her condition over the next 1-2 days, with anticipation for discharge rather soon. Patient verbalized feeling comfortable with this idea. Physical Exam Psychiatric Orientation: alert, oriented x 3 and cooperative (Shy, but pleasant) Apperance: appropriately dressed (Casually, wearing T-shirt and sweatpants), appropriately groomed and appeared stated age Eye Contact: good eye contact Motor Behavior: steady gait and station and no abnormal motor movements Speech: normal rate/rhythm/volume of speech (Soft volume, nonspontaneous) Affect: + blunted affect; no anxious affect and + mood not congruent with affect Mood: + anxious mood ("I am anxious") Thought Process: goal directed thought process and + concrete thought process Thought Content: reality based without delusions; no hopelessness Suicidal Thoughts: denies suicidal thoughts and denies suicidal intent Homicidal Thoughts: denies homicidal thoughts Hallucinations: no auditory hallucinations (Describes "thoughts telling me to hurt myself", unclear if true AH) Cognition: attention grossly intact and language grossly intact Estimated Intelligence: + below average estimated intelligence Insight: + limited insight (Likely limited by intellectual disability) Judgement: + limited judgement (Likely limited by intellectual disability) Vital Signs (Past 24 Hours) Last Vital Signs Temp 36.3 C L 04/15/19 06:46 Pulse 84 04/15/19 06:48 Resp 20 04/15/19 06:46 BP 120/75 04/15/19 06:48 Pulse Ox 94 04/13/19 00:25 Results & Data Current Inpatient Medications Current Inpatient Medications: Current Inpatient Medications Acetaminophen (Tylenol) 650 mg PO Q4H PRN PRN Reason: Headache or Minor Fever Stop: 05/13/19 00:57 Last Admin: 04/14/19 19:37 Dose: 650 mg Documented by: Al Hydrox/Mg Hydrox/Simethicone (Maalox) 30 ml PO Q4H PRN PRN Reason: GI Upset Stop: 05/13/19 00:57 Aripiprazole (Abilify) 1 ea PO DAILY [facility] Stop: 05/13/19 08:59 Last Admin: 04/15/19 08:18 Dose: 1 ea Documented by: Bismuth Subsalicylate (Kaopectate) 15 ml PO PRN PRN PRN Reason: Loose Stool Stop: 05/13/19 00:57 Buspirone HCl (Buspar) 7.5 mg PO BID PRN PRN Reason: Anxiety Stop: 05/13/19 20:59 Last Admin: 04/14/19 16:59 Dose: 7.5 mg Documented by: Buspirone HCl (Buspar) 10 mg PO BID [facility]IS Stop: 05/14/19 20:59 Last Admin: 04/15/19 08:19 Dose: 10 mg Documented by: Clozapine (Clozapine) 100 mg PO BID [facility] Stop: 05/13/19 08:59 Last Admin: 04/15/19 08:19 Dose: 100 mg Documented by: Cyanocobalamin (Vitamin B-12) 100 mcg PO QAM [facility]IS Stop: 05/13/19 08:59 Last Admin: 04/15/19 08:19 Dose: 100 mcg Documented by: Hydroxyzine HCl (Vistaril) 50 mg PO HSZ PRN PRN Reason: Insomnia Stop: 05/13/19 00:57 Last Admin: 04/13/19 01:02 Dose: 50 mg Documented by: Hydroxyzine HCl (Vistaril) 25 mg PO Q4H PRN PRN Reason: Anxiety Stop: 05/13/19 00:57 Last Admin: 04/14/19 09:03 Dose: 25 mg Documented by: Levothyroxine Sodium (Synthroid) 75 mcg PO DAILYBB [facility] Stop: 05/13/19 07:59 Last Admin: 04/15/19 08:18 Dose: 75 mcg Documented by: Magnesium Hydroxide (Milk Of Magnesia) 30 ml PO DAILY PRN PRN Reason: Constipation Stop: 05/13/19 00:57 Firazyr~Non- Formulary Patient's Own Med 1 ea SQ UD PRN PRN Reason: ANGIOEDEMA Stop: 05/13/19 01:59 Non-Formulary Medication (Non-Formulary Patient's Own Med) 1 ea OP DAILY PRN PRN Reason: ALLERGY EYES Stop: 05/13/19 01:59 Last Admin: 04/13/19 11:28 Dose: 1 dose Documented by: Sertraline HCl (Zoloft) 75 mg PO DAILY [facility] Stop: 05/14/19 08:59 Last Admin: 04/15/19 08:19 Dose: 75 mg Documented by: Sodium Chloride ([place] Nasal) 1 - 2 sprays NA PRN PRN PRN Reason: Nasal Dryness/Congestion Stop: 05/13/19 00:57 Mental Health & Subst Abuse Tx Psychiatrist Name of Psychiatrist: Hollie Meneses Psychiatrist's Psychiatric Appointment Comment: [id number] [place], [place] [address] Therapist Name of Therapist: none Flash Designer Name of Flash Designer: TRAY Abel Phone Number for Flash Designer: [phone] Case Management Appointment Comment: [address] [facility], [place] [address] Post Discharge Appointments Other #1: Name of [facility] [place] #2: Name of Aftercare Appointment: To change Medical Assistance from [facility] to [facility] Phone Number of Aftercare Appointment: Aftercare Appointment Comment: [address] [place] [address] Contact Information Discharge Discharge Address: [address] [place] [address], [place] [id number]
[2019-04-15] MEDS: BUSPIRONE HCL 7.5 MG TAB PO PRN (19:20)
[2019-04-16 06:42] VITALS: TEMP 97.7
[2019-04-16] MEDS: ARIPiprazole PO SCH (08:59)
[2019-04-16] MEDS: LEVOTHYROXINE SODIUM 75 MCG TABLET PO SCH (08:59)
[2019-04-16] MEDS: cloZAPine 100 MG TAB PO SCH (09:00)
[2019-04-16] MEDS: SERTRALINE HCL 50 MG TABLET PO SCH (09:00)
[2019-04-16] MEDS: CYANOCOBALAMIN (VITAMIN B-12) 100 MCG TABLET PO SCH (09:00)
--- NOTE | 2019-04-16 09:11 | Discharge Summary ---
Date of Service April 16, 2019 History of Present Illness Patient presented to the ER yesterday, 04/12/2019, with self-inflicted lacerations to her left upper extremity. She reported command auditory hallucinations to harm and kill herself and suicidal thoughts. These were exacerbated by stress due to a poor relationship with her mother. Laboratory data were notable for glucose 107, normal TSH, UA with trace ketones, 1+ leukocyte esterase, 10-12 WBCs, 5-10 RBCs,> 30 epithelial cells, and 1+ bacteria; UDS negative. She was admitted voluntarily. On my assessment she reports her day yesterday "started off great, then I heard a voice in my head telling me to cut myself, and I acted on it, and cut myself a lot." She says she "had to see the blood to make me happy, I know that it's right, but that's what happened." She initially denies triggers, but when asked about trying to contact her mother, admits that she was upset about being able to reach her. She was living with her parents in [place] until 4-6 months ago when she moved to a "life sharing home" in [place] to "get away from there, the alcohol got to us, my dad has anger problems." She talks to them on the phone but does not get to see them. She lives with a life share provider, "I'm disabled, I can't live alone." She reports depressed mood for the past 3 months, triggered by moving out of parents' home and missing them. She enjoys arts and crafts, attends a day program, and works at her day program. Sleep has been good, appetite is good, but focus is impaired and she's had suicidal thoughts 1-3 times a month. She reports AH daily that she describes as "racing thoughts, my own thoughts, but it sounds real." She denies hearing a voice and describes it as "more in my head." The thoughts are often to "hurt myself," and come and go, worsening when upset or angry. She has not cut in two years, and is "upset that I did that." She reports anxiety with heart racing, sweating, excessive worry about "anything and everything under the sun." She denies panic attacks, manic and PTSD symptoms. She states she feels overwhelmed, is still having urges to hurt herself, and agrees to go to staff if feels she is going to act on them. She used to smoke cigarettes and drink alcohol to cope, but hasn't in 4-6 months since she moved. She also goes outside for walks as a way to cope. Physical Exam Psychiatric Orientation: alert, oriented x 3 and cooperative Apperance: appropriately dressed (still in pajamas), + disheveled (awoken from sleep for discharge interview) and appeared stated age Eye Contact: good eye contact Motor Behavior: steady gait and station and no abnormal motor movements Speech: normal rate/rhythm/volume of speech Affect: + blunted affect (appearing fatigued, but not overtly depressed) Mood: no depressed mood ("I just woke up, but I think my mood is ok") and no anxious mood Thought Process: goal directed thought process, clear/coherent thought process and + concrete thought process Thought Content: reality based without delusions; no hopelessness and no worthlessness Suicidal Thoughts: denies suicidal thoughts, denies suicidal plan and denies suicidal intent Homicidal Thoughts: denies homicidal thoughts Hallucinations: no auditory hallucinations and no visual hallucinations Cognition: attention grossly intact and language grossly intact Estimated Intelligence: + below average estimated intelligence Insight: + limited insight (limited by intellectual disability, fair insight as it pertains to tx) Judgement: + fair judgement Vital Signs (Past 24 Hours) Last Vital Signs Temp 36.5 C 04/16/19 06:41 Pulse 102 H 04/16/19 06:42 Resp 20 04/16/19 06:41 BP 124/78 04/16/19 06:42 Pulse Ox 94 04/13/19 00:25 Principal Diagnosis - Schizoaffective disorder, bipolar type - Generalized anxiety disorder - Posttraumatic stress disorder - Intellectual disability Psychiatric Data 24-year-old female admitted voluntarily for inpatient psychiatric treatment after presenting to the ED on 04/12/2019 with self-inflicted lacerations to her left arm. Patient verbalized auditory hallucinations commanding her to harm and kill herself. Patient had cut herself "to see the blood to make me happy." Patient is aware that these behaviors are not an appropriate way to manage difficult emotions stated "that is what happened." It was reported that the patient had moved into a "life sharing home" in the past 4-6 months, in order to be removed from difficult and potentially harmful situations at home. Patient reported that there is significant alcohol use at her parents house, and that "my dad has anger problems." Patient is now residing in [place], with a female support who shares her home with the patient with assistance from an organization called [employer]. Patient does have a documented intellectual disability, and has several mental health support services in her county as well. Patient attends a day program 5 days a week and also has multiple caseworkers. She also has tele-psychiatry through [employer]. Patient reportedly carries diagnoses of intellectual disability; schizoaffective disorder, bipolar type; generalized anxiety disorder; and posttraumatic stress disorder, with denial of active symptoms currently. Some adjustments were made to the patient's psychiatric medication regimen in order to target reports of anxiety. Her dose of sertraline was titrated from 50 mg to 75 mg daily. Her dose of buspirone was also titrated to 10 mg twice daily, and she was discharged with ability to take an extra 10 mg tablet during the day if needed. Otherwise, patient was continued on clozapine 100 mg twice daily, and aripiprazole 2 mg daily. Steps were taken to convert patient's clozapine registration from her previous pharmacy to the [facility] in [place] prior to discharge. Collateral information was gathered from patient's "life support assistant womens volleyball coach" to coordinate aftercare and discharge plans. Multiple attempts were made to coordinate care with patient's outpatient case management social worker. At the time of discharge, aftercare appointments were confirmed, to allow for timely follow-up after discharge. Over the course of the patient's hospitalization, she had verbalized steady improvement in mood and demonstrated ability to contract for safety. On two occasions, the patient verbalized to staff thoughts to harm herself without suicidal intent. Both times the patient provided a pen she had considered using for the self-harm to staff to demonstrate ability to resist these urges. Patient actively participated in group programming and was interactive with peers. Her life support assistant womens volleyball coach did present for a family meeting which was reportedly productive. Collateral from outpatient sources outlines the patient's history of chronic episodes of suicidality with self-harm behavior. By the time of discharge consideration, patient was denying both suicidal ideation and thoughts to physically harm herself. Patient's life support assistant womens volleyball coach was involved in discharge planning, and verbalized readiness to take the patient home. Discharge plan was discussed with the patient, who verbalized agreement with discharge. Based on review of patient's case and their current presentation, risk of harm to self or others is no longer perceived to be acute. Management of symptoms on an outpatient basis seems the most appropriate and least restrictive setting. Pt seems appropriate for discharge with recommendation for consistent follow-up with outpatient psychiatric prescriber, case management social worker, and day program staff. Pt verbalized understanding of discharge plan reviewed and is agreeable with plan to be discharged home today. Day of Discharge Assessment Patient's case was reviewed and discussed with nursing and social work. Staff reports the patient continues to deny suicidal ideation. She received a visit from her home support person last evening, which went well by this individual's report, but patient did not agree. Pt was able to provide staff with a pen, after reporting she had thoughts to use it to harm herself - demonstrating effective use of her safety plan. Pt was seen today to assess readiness for discharge, as patient's support person felt the patient was appropriate to return home. Pt states that she is "tired" this morning, as she had still been sleeping prior to our conversation. The patient states that she received a visit last evening from her home support individual, which patient states went "horribly." The support, however, told staff that the meeting was productive and she feels the patient would be able to return home with her. Pt reports that the upsetting part of the meeting was finding out that she would not be able to go to family gatherings. Pt does admit, however, that it made her feel "pretty good" when her support aid told her the patient could spend the holidays with the aid and her family. Pt states that her "hurt feelings" resolved rather quickly after she was engaged in a card game with peers. Patient states that at this time, she is not having thoughts to harm herself or thoughts to end her life. Aftercare plan was reviewed with the patient, who verbalized understanding of discharge recommendations. She states that she feels comfortable returning home if her home support aid is agreeable to the idea. Patient states she is planning to either attend day programming tomorrow, or go to work with her aid. Patient denies acute needs or concerns at this time. Patient did complete a safety plan prior to discharge, which she is able to verbalize with this provider during conversation. The written form was reviewed by this provider prior to discharge. ROS: Constitutional: reports current fatigue Cardiovascular: denied Respiratory: denied Gastrointestinal: denied Neurological: denied Psychiatric: denies symptoms other than stated above Total of at least 10 systems reviewed, pertinent positives as above and in HPI. Transition of Care Transition Of Care Record: was reviewed with the patient Advance Directives Advance Directives Information Provided: Yes Advance Directives: No Mental Health Advance Directive: No Advance Directives on File: No Living Will: No Power of Sales Effectiveness Manager: No Advance Directives Reason:: Declines as Mental Health Visit. Risk Factors Assessment Presenting risk factors reviewed on discharge. Precipitating stressors mitigated by: admission for inpatient psychiatric observation and treatment, appropriate adjustments to medications to target symptoms, attendance of therapeutic treatment groups, development of healthy and effective coping strategies, involvement of outpatient supports, completion of a safety plan, treatment of medical conditions and education on diagnoses. Pt has demonstrated improvement in condition with regard to improvement in mood, demonstration of ability to contract for safety, resolution of SI, coordination of aftercare, and involvement of outpatient supports in discharge/safety planning. At this time, patient is requesting discharge and is no longer considered to be at acute risk of harm to herself or others. Pt will be discharged with recommendation for ongoing outpatient psychiatric treatment. Male: No : Yes Do You Have Access To A Gun?: No Health Problems: Yes Mental Health Diagnoses: Yes Substance Use Disorders: No Previous Attempt: Yes Previous Psychiatric Hospitalization: Yes Hopelessness: No Smoker: No Protective Factors Assessment : No Responsible for Young Children: No Employed: No Stable Relationships: Yes Supportive Family: No Good Rapport with Provider: No Tobacco Cessation at Discharge Tobacco Cessation Medication Prescribed at Discharge: Not Applicable/Non-Smoker Antipsychotic Medications Discharge medication list includes recommendation to continue home dosage of 2 antipsychotic medications. Pt is being maintained on clozapine 100mg BID with augmentation from aripiprazole 2mg due to multiple likely failed antipsychotic trials, and what was likely ineffective management of symptoms with clozapine alone. Total Time Total Time Spent: Greater Than 30 Minutes Total Time Includes: Examination of the patient, Discharge Planning, Medication Reconciliation and Communication with other providers Discharge Data Lab Results 04/12/19 04/12/19 04/12/19 21:51 21:51 21:51 WBC 7.13 RBC 5.40 Hgb 15.9 Hct 50.0 H MCV 92.6 MCH 29.4 MCHC 31.8 L RDW Std Deviation 47.8 H RDW Coeff of Drea 14.2 Plt Count 244 MPV 11.6 H Immature Gran % (Auto) 0.1 Neut % (Auto) 70.6 Lymph % (Auto) 21.7 Heard % (Auto) 7.6 Eos % (Auto) 0.0 Baso % (Auto) 0.0 Immature Gran # (Auto) 0.01 Neut # (Auto) 5.03 Lymph # (Auto) 1.55 Heard # (Auto) 0.54 Eos # (Auto) 0.00 Baso # (Auto) 0.00 Sodium 140 Potassium 3.9 Chloride 105 Carbon Dioxide 28 Anion Gap 7.0 BUN 14 Creatinine 1.00 Est Cr Clr Drug Dosing 137.7 Est GFR ( Amer) 90.1 Est GFR (Non-Af Amer) 77.7 BUN/Creatinine Ratio 14.4 Glucose 107 H Estimat Average Glucose Hemoglobin A1c Calcium 9.5 Total Bilirubin 0.3 AST 12 L ALT 27 Alkaline Phosphatase 88 Total Protein 7.6 Albumin 4.0 Globulin 3.6 Albumin/Globulin Ratio 1.1 Triglycerides Cholesterol LDL Cholesterol, Calc VLDL Cholesterol, Calc HDL Cholesterol Cholesterol/HDL Ratio TSH 2.980 HCG, Qual Urine Color Urine Appearance Urine pH Ur Specific [place] Urine Protein Urine Glucose (UA) Urine Ketones Urine Blood Urine Nitrite Urine Bilirubin Urine Urobilinogen Ur Leukocyte Esterase Urine WBC (Auto) Urine RBC (Auto) U Hyaline Cast (Auto) U Epithel Cells (Auto) Urine Bacteria (Auto) Salicylates < 1.7 L Urine Opiates Screen Ur Methadone, Qual Acetaminophen < 2 L Urine Barbiturates Ur Phencyclidine (PCP) U Amphetamin/Meth Scrn MDMA (Ecstasy) Screen U Benzodiazepines Scrn Ur Cocaine Metabolite U Marijuana (THC) Screen Ethyl Alcohol mg/dL 04/12/19 04/12/19 04/12/19 21:51 21:56 22:07 WBC RBC Hgb Hct MCV MCH MCHC RDW Std Deviation RDW Coeff of Drea Plt Count MPV Immature Gran % (Auto) Neut % (Auto) Lymph % (Auto) Heard % (Auto) Eos % (Auto) Baso % (Auto) Immature Gran # (Auto) Neut # (Auto) Lymph # (Auto) Heard # (Auto) Eos # (Auto) Baso # (Auto) Sodium Potassium Chloride Carbon Dioxide Anion Gap BUN Creatinine Est Cr Clr Drug Dosing Est GFR ( Amer) Est GFR (Non-Af Amer) BUN/Creatinine Ratio Glucose Estimat Average Glucose Hemoglobin A1c Calcium Total Bilirubin AST ALT Alkaline Phosphatase Total Protein Albumin Globulin Albumin/Globulin Ratio Triglycerides Cholesterol LDL Cholesterol, Calc VLDL Cholesterol, Calc HDL Cholesterol Cholesterol/HDL Ratio TSH HCG, Qual Negative Urine Color Urine Appearance Urine pH Ur Specific [place] Urine Protein Urine Glucose (UA) Urine Ketones Urine Blood Urine Nitrite Urine Bilirubin Urine Urobilinogen Ur Leukocyte Esterase Urine WBC (Auto) Urine RBC (Auto) U Hyaline Cast (Auto) U Epithel Cells (Auto) Urine Bacteria (Auto) Salicylates Urine Opiates Screen Neg Ur Methadone, Qual Neg Acetaminophen Urine Barbiturates Neg Ur Phencyclidine (PCP) Neg U Amphetamin/Meth Scrn Neg MDMA (Ecstasy) Screen Neg U Benzodiazepines Scrn Neg Ur Cocaine Metabolite Neg U Marijuana (THC) Screen Neg Ethyl Alcohol mg/dL < 3.0 04/12/19 04/14/19 04/14/19 22:07 07:16 07:16 WBC RBC Hgb Hct MCV MCH MCHC RDW Std Deviation RDW Coeff of Rdea Plt Count MPV Immature Gran % (Auto) Neut % (Auto) Lymph % (Auto) Heard % (Auto) Eos % (Auto) Baso % (Auto) Immature Gran # (Auto) Neut # (Auto) Lymph # (Auto) Heard # (Auto) Eos # (Auto) Baso # (Auto) Sodium Potassium Chloride Carbon Dioxide Anion Gap BUN Creatinine Est Cr Clr Drug Dosing Est GFR ( Amer) Est GFR (Non-Af Amer) BUN/Creatinine Ratio Glucose Estimat Average Glucose 114 Hemoglobin A1c 5.6 Calcium Total Bilirubin AST ALT Alkaline Phosphatase Total Protein Albumin Globulin Albumin/Globulin Ratio Triglycerides 124 Cholesterol 187 LDL Cholesterol, Calc 112 VLDL Cholesterol, Calc 25 HDL Cholesterol 50 Cholesterol/HDL Ratio 4 TSH HCG, Qual Urine Color Dark Yellow Urine Appearance Cloudy A Urine pH 7.0 Ur Specific [place] 1.030 Urine Protein Negative Urine Glucose (UA) Negative Urine Ketones Trace H Urine Blood Negative Urine Nitrite Negative Urine Bilirubin Negative Urine Urobilinogen Negative Ur Leukocyte Esterase 1+ H Urine WBC (Auto) 10-30 H Urine RBC (Auto) 5-10 H U Hyaline Cast (Auto) 5-10 H U Epithel Cells (Auto) >30 H Urine Bacteria (Auto) 1+ H Salicylates Urine Opiates Screen Ur Methadone, Qual Acetaminophen Urine Barbiturates Ur Phencyclidine (PCP) U Amphetamin/Meth Scrn MDMA (Ecstasy) Screen U Benzodiazepines Scrn Ur Cocaine Metabolite U Marijuana (THC) Screen Ethyl Alcohol mg/dL Hospital Course (1) Intentional self-harm: 04/13 -evaluated superficial lacerations to left forearm; multiple scratches that appear to be healing, no swelling, erythema, active bleeding. Keep area clean and dry, use of bacitracin as needed. -Patient reports ongoing urges to engage in self injury, and agrees to go to staff if she feels unable to keep herself safe. Explore and identify healthy coping strategies; work on discharge safety plan. 04/14 - Pt verbalized desire to harm herself to staff last evening, presenting them with a pen she had intended to use - Pt admits to ongoing thoughts to harm herself, but has refrained from acting - stating "I gave up my weapon" 04/15 - Denies overt SI, admits to chronic thoughts to injure herself - actively developing healthy coping strategies with assistance from staff (2) Schizoaffective disorder, bipolar type: 04/13 -obtain outpatient records to clarify diagnosis and past treatments. We will also need to clarify if she is being cross titrated from 1 antipsychotic to another, or if aripiprazole is being used for augmentation with clozapine. -Continue home medications including buspirone 5 mg twice daily, clozapine 100 mg twice daily, and aripiprazole 2 mg daily. Increase sertraline to 75 mg daily to target mood and anxiety symptoms. -CBC with differential reviewed for monitoring on clozapine; ANC 5.03. -Order fasting lipid profile and hemoglobin A1c for monitoring on an atypical antipsychotic for tomorrow morning.` -Encourage patient to attend to participate in groups and therapy. -Family meeting. Coordinate care with her outpatient clinicians. 04/14 - Continue as above; buspirone titrated to 10mg BID scheduled, with continued availability of 7.5mg prn dosing - Family meeting with support from [facility] was held today - Continue to encourage participation in group and recreational therapy 04/15 - Continue current medication regimen - Coordinate discharge planning with patient home support through [facility] (3) Generalized anxiety disorder: Continue home dose of buspirone 5 mg twice daily and increase sertraline as above. Offer hydroxyzine as needed for severe anxiety. Work on behavioral techniques for managing anxiety and de-escalating. 04/14 - buspirone titrated to 10mg BID, to begin this evening - can continue titration as needed/tolerated - Continue to have prn dosing of buspirone 7.5mg prn anxiety (4) Intellectual disability: Involved case management social worker from [employer]. (5) Posttraumatic stress disorder: Patient denies active symptoms currently. (6) Morbid obesity: Encouraged nutritious diet and physical activity, to assist with overall health, mood, anxiety, and weight loss. (7) Hypothyroidism: Continue home dose of levothyroxine. TSH within normal limits on admission. Mental Health & Subst Abuse Tx Psychiatrist Name of Psychiatrist: Hollie Meneses Psychiatrist's Time of Appointment with Psychiatrist: Sarah is rescheduling Psychiatric Appointment Comment: [id number] [place], [place] [address] Therapist Name of Therapist: none Professional Healthcare Representative Name of Professional Healthcare Representative: TRAY Bela Abel Phone Number for Professional Healthcare Representative: [phone] Case Management Appointment Comment: [address] [place] [address] Post Discharge Appointments Smoking Cessation Counseling Tobacco Cessation Medication Prescribed at Discharge: Not Applicable/Non-Smoker Other #1: Name of Aftercare Appointment: Case Management Services in [facility] Phone Number of Aftercare Appointment: [phone] Aftercare Appointment Comment: [address], [address], [place], [place] #2: Name of Aftercare Appointment: To change Medical Assistance from [facility] to [facility] Phone Number of Aftercare Appointment: Aftercare Appointment Comment: [address], [place] [address] Contact Information Discharge Discharge Address: [address] [place] [address] [address] , [place] [address] Discharge Plan Discharge Items Patient Disposition: Home - Self-Care Reason For Visit: SCHIZO AFFECTIVE, DEPRESSION Discharge Diagnosis: Schizoaffective disorder; Anxiety Condition on Discharge: Fair Activity: Resume your previous activity Non-emergency contact: Primary Care Provider, Psychiatrist, Therapist and Salvage Worker Call non-emergency contact if: you have any medication questions and your symptoms worsen Follow-up/Referrals: Olga Larios MD [Primary Care Provider] - Diet: Regular Addtl Attending Provider Instructions: SPECIAL CARE INSTRUCTIONS: 1. Follow through with your scheduled aftercare appointments. If unable to keep an appointment, please call to reschedule. 2. Take your medication only as prescribed. Medication should not be changed or stopped without the approval of your doctor. In the event of worsening symptoms or concerns about side effects, contact your doctor immediately. 3. Utilize new healthy coping skills, anger management skills, and stress management skills learned during your hospitalization. Journal feelings and process them with a support person. Identify stressors or situations that may result in relapse, deterioration or inappropriate behaviors and develop a plan to deal with those issues. 4. If your coping skills are ineffective and you are in crisis, contact your outpatient providers for direction. If unable to reach your providers, please call the CAN HELP LINE AT or go to the closest Emergency Room. 5. Avoid alcohol and un-prescribed drugs. 6. You have been provided with the Mental Health Advance Directives Pamphlet for your review. AFTERCARE APPOINTMENTS: * Please call your insurance company prior to your scheduled appointment to confirm your aftercare providers are covered. Take your insurance information to your appointments. WHO TO CALL AND WHEN: Medical Emergencies: For questions or emergencies related to your hospital stay, please contact the Inpatient Behavioral Health Unit at [phone]. A assessment clinician is on-call 07/01 for the Behavioral Health Unit for emergencies At any time you feel your situation is an emergency, you may also call 911 i mmediately. Your Discharge Instructions noted above were prepared by provider Rose Ferrera PA-C. Pending Studies at Discharge: No Stand-Alone Forms: [facility], Smoking Cessation Medications and DC Order Prescriptions: New buspirone 10 mg tablet 10 mg PO TID 30 Days Qty: 90 RF: 0 sertraline 50 mg tablet 75 mg PO DAILY 30 Days Qty: 45 RF: 0 Continued C1 esterase inhibitor 3,000 unit recon soln 9,000 units subcut 2XWK RF: 0 aripiprazole 2 mg Tablet 2 mg PO DAILY RF: 0 olopatadine 0.2 % Drops 1 drp OPHTHALMIC (EYE) DAILY PRN (Reason: Dry Eyes) RF: 0 clozapine 100 mg Tablet 100 mg PO BID RF: 0 cyanocobalamin (vitamin B-12) 1,000 mcg Tablet 1,000 mcg PO DAILY RF: 0 icatibant 30 mg/3 mL Syringe 30 mg SUBCUT UD RF: 0 Changed levothyroxine 75 mcg Tablet 75 mcg PO DAILYBB Qty: 0 RF: 0 Discontinued buspirone 5 mg Tablet 5 mg PO BID RF: 0 sertraline 50 mg Tablet 50 mg PO DAILY RF: 0 Discharge Orders: Discharge Order (Routine); Ordered 04/16/19 Ordered By: Evette Benton Admission Data Admit Date/Time: 04/13/19 00:05 Attending Provider: Evette Benton Admit Provider: Honorio Mcneil Primary Care Provider: Olga Larios Other Interventions: Discharge Summary Assessment (RN) Last Done: 04/16/19 10:15 PSY Interdisciplinary Discharge Planning Last Done: 04/16/19 10:16 DC Date/Time DO NOT enter until pt leaves facility: 04/16/19 12:00 Coding Level of Care Code 61739 D/C day mgmt > 30 min Diagnoses Intentional self-harm Schizoaffective disorder, bipolar type F25.0 Generalized anxiety disorder F41.1 Intellectual disability F79 Posttraumatic stress disorder F43.10 Morbid obesity E66.01 Hypothyroidism E03.9
[2019-04-16 10:17] VITALS: BP 140/88; PULSE 92
== END 2019-04-16 12:00 | disposition home or self-care (01) | DRG 885 ==
LOC: ED 20:01 → 3S 04-13 00:05